=== PATIENT | male | born 1970 | race Caucasian/White ===

== ENCOUNTER 2018-06-09 17:06 | Emergency (ER) | payer BC ==
[2018-06-09] MEDS ORDERED: DIPHTH,PERTUSS(ACELL),TET TOX 0.5 ML DISP.SYRIN. VAX IM (17:48)
[2018-06-09] MEDS: DIPHTH,PERTUSS(ACELL),TET TOX 0.5 ML DISP.SYRIN. VAX IM (17:52)
== END 2018-06-09 17:59 | disposition home or self-care (01) ==
LOC: ER 17:06
DX: S70.362A Insect bite (nonvenomous), left thigh, initial encounter (principal); L03.116 Cellulitis of left lower limb; W57.XXXA Bitten or stung by nonvenomous insect and other nonvenomous arthropods, initial encounter; Y93.89 Activity, other specified; Y92.89 Other specified places as the place of occurrence of the external cause; Y99.8 Other external cause status
CPT/HCPCS: 90471; 90715; 99283